=== PATIENT | female | born 1975 | race Caucasian/White ===

== ENCOUNTER → 2018-03-22 | Outpatient (CLI) | payer BC ==
--- NOTE | 2018-03-22 22:24 | CT ---
EXAMINATION TYPE: CT abdomen pelvis w con DATE OF EXAM: 03/22/2018 HISTORY: Epigastric and pelvic pain per patient. Ovarian cyst per order. CT DLP: 1212mGycm Automated Exposure Control for Dose Reduction was Utilized. CONTRAST: CT scan of the abdomen and pelvis is performed with oral and with IV Contrast, patient injected with 100 mL of Isovue M300. COMPARISON: None FINDINGS: LUNG BASES: No significant abnormality is appreciated. LIVER/GB: No significant abnormality is appreciated. PANCREAS: No significant abnormality is seen. SPLEEN: No significant abnormality is seen. ADRENALS: Slight thickening to both adrenal glands favors benign hyperplasia. KIDNEYS: Symmetric cortical medullary uptake and excretion of both kidneys without hydronephrosis tamanna ntified bilaterally. BOWEL: The oral contrast reaches level of the sigmoid colon. There is no suspicious small or large hallie wel dilatation. There is poor distention of stomach makes evaluation at this level suboptimal. Normal appearing contrast-filled appendix is seen. There is mild wall thickening in the sigmoid colon likel y product of poor distention, mild colitis is not entirely excluded. UTERUS/ADNEXA: Anteverted uterus is present. Both ovaries are seen and no suspiciously enlarged. Left is slightly larger than right with scattered peripheral follicles but present in both. No free fluid is seen in pelvic cul-de-sac. Occasional pelvic phlebolith is present bilaterally. LYMPH NODES: No greater than 1cm abdominal or pelvic lymph nodes are appreciated. OSSEOUS STRUCTURES: No significant abnormality is seen. OTHER: No significant additional abnormality is seen. IMPRESSION: No significant acute finding is seen to account for patient's clinical symptoms of the ep igastric and pelvic pain. No suspicious ovarian lesions identified on CT.
== END | disposition home or self-care (01) ==
LOC: RADCTMAIN 14:41
PROVIDERS: ATTEND Family Medicine
DX: N83.209 Unspecified ovarian cyst, unspecified side (principal)
CPT/HCPCS: 74177; Q9967

== ENCOUNTER → 2019-07-04 | Outpatient (CLI) | payer BC ==
--- NOTE | 2019-07-04 11:07 | CT ---
EXAMINATION TYPE: CT facial bones w con DATE OF EXAM: 07/04/2019 COMPARISON: None HISTORY: 44 year-old female right brachial lesion, Right brow ptosis CT DLP: 621 mGycm Automated exposure control for dose reduction was used. TECHNIQUE: CT scanning of the facial bones after administration 100 mL Isovue 300 IV contrast. Coron al reconstructions performed. FINDINGS: Leftward nasal septal deviation. Mild mucosal thickening left ethmoid air cells. No air-fluid level o r any other significant mucosal thickening in the paranasal sinuses. Orbits and globes are intact. There is symmetrical appearance to the extraocular muscles within the o rbits without any apparent atrophy or abnormal enlargement. By CT, appearance of the bilateral optic nerve sheath complexes is unremarkable. Superior ophthalmic veins appear normal and there is enhancement within the bilateral cavernous sinus es. Visualized intracranial structures show no gross abnormal. Mastoid air cells and middle ear cavities are clear. IMPRESSION: No discrete orbital or preseptal abnormality identified. Mild mucosal thickening left ethmoid air cells and leftward nasal septal deviation.
== END | disposition home or self-care (01) ==
LOC: RADCTMAIN 09:12
PROVIDERS: ATTEND Otolaryngology
DX: J34.2 Deviated nasal septum (principal); H57.811 Brow ptosis, right
CPT/HCPCS: 70487; Q9967

== ENCOUNTER → 2020-08-27 | Outpatient (CLI) | payer BC ==
--- NOTE | 2020-08-27 12:07 | MR ---
EXAMINATION TYPE: MR lumbar spine wo con DATE OF EXAM: 08/27/2020 COMPARISON: NONE HISTORY: Low back pain that travels down left leg. TECHNIQUE: T1 and T2 axial and sagittal images of the lumbar spine are submitted. FINDINGS: There is no abnormal signal seen within the visualized spinal cord or paraspinal soft tissu es. At L1-2 there is no evidence of disc herniation or canal stenosis. No foraminal encroachment. At L2-3 there is no disc herniation or canal stenosis. No foraminal encroachment. At L3-4 there is no disc herniation or canal stenosis. No foraminal encroachment. Mild hypertrophic c hange of the facets. At L4-5 there is disc desiccation and evidence of facet hypertrophic changes. Neural foramina patent. No focal herniation or canal stenosis. At L5-S1 there is disc desiccation and degenerative changes with facet arthropathy and mild bilateral foraminal encroachment. Broad-based central disc protrusion with mild effacement of the thecal sac. No definite nerve root contact. IMPRESSION: 1. Degenerative disc disease L5-S1 with broad-based disc protrusion and mild effacement of thecal sac . Mild bilateral foraminal encroachment.
== END ==
LOC: RADMRIMAIN 11:07
PROVIDERS: ATTEND Family Medicine
DX: M51.37 Other intervertebral disc degeneration, lumbosacral region (principal); M51.27 Other intervertebral disc displacement, lumbosacral region
CPT/HCPCS: 72148

== ENCOUNTER → 2022-10-03 | Outpatient (CLI) | payer BC ==
--- NOTE | 2022-10-04 09:48 | MM ---
Reason for Exam: Screening (asymptomatic). Last mammogram was performed 8 year(s) and 2 month(s) ago. Patient History: Menarche at age 10. First Full-Term at age 19. Perimenopausal. Risk Values: Fang 5 year model risk: 0.8%. NCI Lifetime model risk: 8.2%. Prior Study Comparison: 07/28/2014 Bilateral Screening Mammogram, [facility]. Tissue Density: There are scattered fibroglandular densities. Findings: Analyzed By CAD. Pattern appears stable. A few benign-appearing calcifications are scattered within the breasts. No significant interval changes are evident. No suspicious groups of microcalcifications, spiculated or lobular masses, architectural distortion or other secondary signs of malignancy are mammographically apparent. Overall Assessment: Benign, BI-RAD 2 Management: Screening Mammogram of both breasts in 1 year. A negative mammogram report should not preclude additional follow up of suspicious palpable abnormalities. Patient should continue monthly self breast exam. A clinical breast exam by your physician is recommended on an annual basis and results should be correlated with mammographic findings. Electronically signed and approved by: Wellington Braden D.O. Radiologis
== END | disposition home or self-care (01) ==
LOC: RADMAMWWP 07:19
PROVIDERS: ATTEND Family Medicine
DX: Z12.31 Encounter for screening mammogram for malignant neoplasm of breast (principal)
CPT/HCPCS: 77067

== ENCOUNTER → 2022-12-21 | Outpatient (CLI) | payer BC ==
[2022-12-21 09:39] VITALS: BP 110/74; PULSE 99; RESP 18
--- NOTE | 2022-12-21 14:30 | P.PAINPG ---
PQRS Measure Charge Sheet Comment: HISTORY OF PRESENT ILLNESS: 47 yr old female w son at side as a referral from Jayla Garcia NPC presents today w severe and chronic LBP secondary to DDD, spondylosis and facet arthropathy without myelopathy for evaluation. Pt states pain level is provoked at 8 /10 in intensity, constant, localized in the lower lumbar spine where it meets the tailbone, sharp in character w shooting pain towards the L hip, buttocks and LE. Pain is provoked by standing/ sitting/ walking for periods of 15 min ormore. Pain is alleviated by medications (Tyl Arthritis, Ibu), heat, ice, massage therapy x 6 wks approx 2 mo ago, chiropractic treatments weekly x 4 wks in Jul 2022, sitting, reclining and rest. Oswestry pain score of 33. PMH: OA, MDD, RHS, IBS, HH, GERD PSH: Uterine Ablation SH: 27 pack/ yr tobacco use, Rare ETOH use, No illicit drug use. w children and lives w spouse. FH: MGM- Asthma. Mo- Endocarditis/ . Aunt- COPD. Aunt- RA. All: See list Meds: See list REVIEW OF ORGAN SYSTEMS: CONSTITUTIONAL: No fevers or chills. No recent weight loss. NEUROLOGICAL: + numbness and tingling along the distal extremities. No seizure disorders or headaches. MUSCULOSKELETAL: + pain PSYCHIATRIC: Denies current depression or suicidal thoughts. Physical Examinations : Constitutional : Cooperative , not in acute distress . Neurologic : Cranial nerve II to XII intact. No focal neurological deficits. Psychiatric : alert & oriented x 3. Matching mood & appropriate affect. Judgment & insight intact. Musculoskeletal : Cervical Spine Motor strength in the deltoid and biceps: Normal right side. Normal Left side Motor strength biceps and the wrist extensors: Normal right side . Normal left side Motor strength in the triceps muscle: Normal right side. Normal left side Deep tendon reflexes: Normal at the biceps. Normal at Brachioradialis. Normal at triceps Vertebral body tenderness to deep palpation over Cervical facet loading test: positive bilaterally Spurling test: positive bilaterally Neck distraction test: positive bilaterally Joseph sign: positive bilaterally Lumbar spine Motor strength lower extremities ,thigh and legs 5/5 Right side , 5/5 Left side Deep tendon reflexes : Normal Knee Jerk. Normal Ankle Jerk Vertebral body tenderness over L5 Jack Test positive Lumbar facet Loading Test: positive Right / positive Left Range of motion of the lumbar spine Flexion 30 degrees, extension 10 degrees Straight Leg Raise test: Left/ Right positive at 35 degree Tapan test: positive right / positive left. Severe tenderness over the Sacroiliac joint on the Right / Left sides Gaenslen test: positive bilaterally Seated flexion test: positive bilaterally. Sacral spine : Severe tenderness over the Sacroiliac joint: right side / left side Range of motion: Flexion of the lumbar spine <60 degrees Range of motion: Extension of the lumbar spine <20 degrees Gaenslen's Test positive Nader's Test positive Tapan test: positive right side / left side Thigh Thrust Test Sacral Thrust Test Imaging: MRI noncontrast of the lumbar spine from 08/27/20 reviewed Assessment/ Plan : Lumbar DDD Recommendation of IGLESIA L5-S1. May need a series of injections for optimal pain relief. Risks, benefits of procedure discussed and patient verbalized understanding. Admits to aspirin or anti- coagulant use or medical history of diabetes. Protocol for discontinuation/ continuation of medications lalo procedure discussed. Minimal anesthesia provided, if clinically indicated, consisting of Versed and Fentanyl. All questions answered. I have spent greater than 30 minutes on patient care today. Dr Wisdom was available by phone for the evaluation of this patient. The time was used to review the medical records including relevant urine studies and Prescription history (MAPs), review of the available imaging, evaluation and examination of the patient, coordination of care with the medical staff and if applicable referring physicians, as well as creation of the medical record Controlled Substance Measures - Controlled Substance Measures Is patient prescribed a controlled substance at discharge?: No
== END ==
LOC: PNWHC3 08:31
PROVIDERS: ATTEND Specialist
DX: M51.36 Other intervertebral disc degeneration, lumbar region (principal); M47.816 Spondylosis without myelopathy or radiculopathy, lumbar region; M19.90 Unspecified osteoarthritis, unspecified site; F32.9 Major depressive disorder, single episode, unspecified; I10 Essential (primary) hypertension; K21.9 Gastro-esophageal reflux disease without esophagitis; Z87.891 Personal history of nicotine dependence; Z91.040 Latex allergy status; Z91.048 Other nonmedicinal substance allergy status
CPT/HCPCS: 99211

== ENCOUNTER 2023-01-10 09:19 | Day surgery (SDC) | payer BC ==
[2023-01-05 15:43] VITALS: BMI 35.2
[~2023-01-10 09:19] MED LIST: LACTATED RINGERS 1,000 ML IV SCH
[2023-01-10 09:51] VITALS: TEMP 97
[2023-01-10] MEDS ORDERED: methylPREDNISolone ACETATE 80 MG/ML 1 ML VIAL ONE (10:03)
[2023-01-10] MEDS ORDERED: IOPAMIDOL M200 10 ML VIAL ONE (10:03)
--- NOTE | 2023-01-10 10:09 | P.PCN ---
Date of Procedure: 01/10/23 Procedure(s) Performed: PREOPERATIVE DIAGNOSIS: 1- Lumbar Degenerative Disc Diseases 2-Lumbar spondylosis with Facet arthropathy without myelopathy. POSTOPERATIVE DIAGNOSIS: 1-lumbar degenerative disc disease. 2-lumbar spondylosis with facet arthropathy without myelopathy. PROCEDURE 1. Lumbar epidural steroid injection under fluoroscopic guidance at the L5-S1 level. (Fluoroscopy imaging was available in radiology department) 2. Lumbar epidurogram. ANESTHESIA: Lidocaine 1% 3 and then only. EBL: Minimal PROCEDURE INDICATION: The patient with low back pain and radiculitis symptoms unresponsive to conservative treatment. Fluoroscopy was used to optimize visualization of the needle placement and to maximize safety. PROCEDURE DESCRIPTION / TECHNIQUE: The patient was seen and identified in the preoperative area. Risks, benefits, complications including but not limited to infections ,bleeding ,allergic reaction to the medications ,nerve damage and not complete pain releife , and alternatives were discussed with the patient. The patient agreed to proceed with the procedure and signed the consent, and vital signs were stable. Patient was taken to the OR and time out was completed. The patient was placed in the prone position on procedure table and a pillow was placed under the abdomen to reduce lumbar lordosis. The lumbosacral area was prepped and draped in the usual sterile fashion.ere closely monitored during the procedure. Vital signs was monitered during the entire procedure. Using anterior-posterior fluoroscopy, the L5-S1 interlaminar space was identified and the skin over this site was marked and then infiltrated with 1% lidocaine subcutaneously. Subsequently, a 20-gauge Tuohy epidural needle was inserted and advanced toward the epidural space using the ``Loss of resistance technique and guided by AP and lateral fluoroscopy. The correct needle position in the epidural space was verified with the injection of 2 mL of the water soluble contrast dye Isovue 200 contrast and observing an excellent epidurogram with the epidural spread of the dye, after negative aspiration for blood and CSF and in the absence of paresthesias. Again after negative aspiration, a 6 ml mixture containing 80 mg of Depo-medrol ( Preservetive Free ), and 2 ml of preservative free Normal Saline, and 2 ml of preservative free lidocaine 1% solution was injected and a washout of epidurogram was seen. Needle was withdrawn intact, skin was cleansed, and bandages were applied. COMPLICATIONS: None DISPOSITION / PLANS: The patient was placed in a supine position and transferred to the recovery area in a stable condition for observation. There was no e vidence of lower extremity motor or sensory deficit after the procedure. Patient was discharged from the recovery room after meeting discharge criteria. Home discharge instructions were given to the patient by the staff. The patient was reexamined prior to discharge. The patient will schedule a follow up in the clinic in 2-4 weeks.
[2023-01-10 10:16] VITALS: BP 119/76; PULSE 91; RESP 18
--- NOTE | 2023-01-10 10:22 | FL ---
Fluoroscopy History: PAIN Lumbar Epid Inj 1sec fluoro time 0.85510 DAP
== END 2023-01-10 10:25 | disposition home or self-care (01) ==
LOC: ORPAIN 09:19
PROVIDERS: ATTEND Specialist
DX: M51.16 Intervertebral disc disorders with radiculopathy, lumbar region (principal); M47.26 Other spondylosis with radiculopathy, lumbar region; Z91.040 Latex allergy status
CPT/HCPCS: 81025; 62323; J1040; Q9966

== ENCOUNTER → 2023-02-02 | Outpatient (CLI) | payer BC ==
[2023-02-02 09:29] VITALS: BP 108/76; PULSE 93; RESP 16; TEMP 98.9
--- NOTE | 2023-02-02 12:23 | P.PAINPG ---
PQRS Measure Charge Sheet Comment: HISTORY OF PRESENT ILLNESS: 47 yr old female w son at side presents today w severe and chronic LBP secondary to DDD, spondylosis and facet arthropathy without myelopathy for evaluation s/p IGLESIA L5-S1. Pt states she experienced 50 % pain relief x 3 wks s/p procedure. Pt states pain level is provoked at 10 /10 in intensity, constant, localized in the lower lumbar spine where it meets the tailbone, achy in character w shooting pain towards the L hip and up the spine. Pain is provoked by standing/ sitting/ walking for periods of 15 min or more. Pain is alleviated by medications, heat, ice, massage therapy x 6 wks approx 2 mo ago, chiropractic treatments weekly x 4 wks in Jul 2022, sitting, reclining and rest. Oswestry pain score of 30. Interventional procedures include IGLESIA L5-S1 x1 Medications include Tyl Arthritis, Ibu REVIEW OF ORGAN SYSTEMS: CONSTITUTIONAL: No fevers or chills. No recent weight loss. NEUROLOGICAL: + numbness and tingling along the distal extremities. No seizure disorders or headaches. MUSCULOSKELETAL: + pain PSYCHIATRIC: Denies current depression or suicidal thoughts. Physical Examinations : Constitutional : Cooperative , not in acute distress . Neurologic : Cranial nerve II to XII intact. No focal n eurological deficits. Psychiatric : alert & oriented x 3. Matching mood & appropriate affect. Judgment & insight intact. Musculoskeletal : Cervical Spine Motor strength in the deltoid and biceps: Normal right side. Normal Left side Motor strength biceps and the wrist extensors: Normal right side . Normal left side Motor strength in the triceps muscle: Normal right side. Normal left side Deep tendon reflexes: Normal at the biceps. Normal at Brachioradialis. Normal at triceps Vertebral body tenderness to deep p alpation over Cervical facet loading test: positive bilaterally Spurling test: positive bilaterally Neck distraction test: positive bilaterally Joseph sign: positive bilaterally Lumbar spine Motor strength lower extremities ,thigh and legs 5/5 Right side , 5/5 Left side Deep tendon reflexes : Normal Knee Jerk. Normal Ankle Jerk Vertebral body tenderness Jack Test positive Lumbar facet Loading Test: positive Right / positive Left over L4-L5, L5-S1 Range of motion of the lumbar spine Flexion 30 degrees, extension 10 degrees Straight Leg Raise test: Left/ Right positive at 35 degree Tapan test: positive right / positive left. Severe tenderness over the Sacroiliac joint on the Right / Left sides Gaenslen test: positive bilaterally Seated flexion test: positive bilaterally. Sacral spine : Severe tenderness over the Sacroiliac joint: right side / left side Range of motion: Flexion of the lumbar spine <60 degrees Range of motion: Extension of the lumbar spine <20 degrees Gaenslen's Test positive Nader's Test positive Tapan test: positive right side / left side Thigh Thrust Test Sacral Thrust Test Imaging: MRI noncontrast of the lumbar spine from 08/27/20 reviewed Assessment/ Plan : Lumbar DDD Recommendation of BL facet block of the medial branches L4-L5, L5-S1 #1. May need a series of injections, up until RFA, for optimal pain relief. Risks, benefits of procedure discussed and patient verbalized understanding. Admits to aspirin or anti- coagulant use or medical history of diabetes. Protocol for discontinuation/ continuation of medications lalo procedure discussed. Minimal anesthesia provided, if clinically indicated, consisting of Versed and Fentanyl. All questions answered. I have spent greater than 30 minutes on patient care today. Dr Wisdom was available by phone for the evaluation of this patient. The time was used to review the medical records including relevant urine studies and Prescription history (MAPs), review of the available imaging, evaluation and examination of the patient, coordination of care with the medical staff and if applicable referring physicians, as well as creation of the medical record PQRS Narrative: Hx Alcohol Use (MH) No Home Medications: Ambulatory Orders DULoxetine HCL [Cymbalta] 60 mg PO HS 01/05/23 Ibuprofen [Motrin] 600 mg PO Q8HR PRN 01/05/23 Levothyroxine Sodium [Synthroid] 88 mcg PO DAILY 01/05/23 Controlled Substance Measures - Controlled Substance Measures Is patient prescribed a controlled substance at discharge?: No
== END ==
LOC: PNWHC3 08:37
PROVIDERS: ATTEND Specialist
DX: M51.37 Other intervertebral disc degeneration, lumbosacral region (principal); Z91.048 Other nonmedicinal substance allergy status; Z91.040 Latex allergy status
CPT/HCPCS: 99211

== ENCOUNTER 2023-02-21 08:36 | Day surgery (SDC) | payer BC ==
[2023-02-21 09:36] VITALS: TEMP 97
[2023-02-21] MEDS ORDERED: MIDAZOLAM 2 MG/2 ML VIAL ONE (10:00)
[2023-02-21] MEDS ORDERED: TRIAMCINOLONE ACETONIDE 40 MG/ML 1 ML VIAL ONE (10:00)
[2023-02-21] MEDS ORDERED: ROPIVACAINE 5MG/ML 20ML VIAL ONE (10:00)
--- NOTE | 2023-02-21 10:14 | P.PCN ---
Date of Procedure: 02/21/23 Surgeon: Mary Anne Richardson Pathology: none sent Condition: stable Disposition: PACU Description of Procedure: PREOPERATIVE DIAGNOSIS : 1- Lumbar spondylosis with Facet Arthropathy without myelopathy . 2- Lumber degenerative disc disease POSTOPERATIVE DIAGNOSIS: 1- Lumbar spondylosis with Facet Arthropathy without myelopathy . 2- Lumber degenerative disc disease PROCEDURE: Diagnostic bilateral L4 -5 , and L5-S1 medial branch block under fluoroscopy Physician: Mary Anne Richardson MD ANESTHESIA: Local with 1% lidocaine; IV moderate conscious sedation with Versed 2 mg . EBL: Negligible COMPLICATION: None. PROCEDURE INDICATION: Chronic low back pain secondary to Facet arthropathy unresponsive to conservative treatment. PROCEDURE DESCRIPTION: the patient was seen and identified in the preop holding area , risks and benefits and possible complications of the procedure and alternatives were discussed with the patient, and the patient agreed to proceed with the procedure and signed the consent. IV was started and vital signs monitored during the procedure and fluoroscopy was used to maximize the benefit and accuracy of the needle placement, sedation was given to decrease patient anxiety, patient was taken to the procedure room and placed in prone position vital signs monitored. The patient was brought into the procedure room and placed in prone position. Skin was prepped with Chloraprep and draped in a sterile manner. Lidocaine 1% was used to numb the skin up at the target points that were chosen as follows: at the L5-S1 level which corresponds to the dorsal ramus of L5 the target points were at the superior medial aspect of the sacral ala on each side of the spine on the AP view of fluoroscopy, and for the L3 and L4 medial branches the target points were the connection between the transverse process and the superior articular process of L4 and L5 respectively on the oblique views of fluoroscopy. I used 22-gauge 3-1/2 inch Quincke spinal needles for this procedure and after contacting bone at the target points mentioned above I injected 1 mL of a mixture of Kenalog 40 mg +5 MLS of Ropivacaine 0.5% PF . Patient tolerated procedure well. At the end of the procedure the needles removed and a bandage applied after the skin was cleaned the cleaning solution. patient was then taken to the recovery room in stable condition and monitored in the recovery room for 20-30 minutes and discharged home in stable condition after discharge criteria met . A copy of the needle placement picture was saved to the C-arm machine. Sedation time: 10:00-10:13
[2023-02-21] MEDS ORDERED: IV FLUID CONTINUATION 1,000 ML IV ONE (10:26)
[2023-02-21 10:54] VITALS: BP 119/60; PULSE 78; RESP 17
--- NOTE | 2023-02-21 12:55 | FL ---
Intraoperative/procedural fluoroscopic services were provided. Total fluoroscopy time is 2.0 seconds with a total of 4 submitted images to PACS. Please see the operative/procedural note for further deta ils. DAP: 0.04259 mGym2
== END 2023-02-21 10:55 | disposition home or self-care (01) ==
LOC: ORPAIN 08:36
PROVIDERS: ATTEND Anesthesiology
DX: M47.816 Spondylosis without myelopathy or radiculopathy, lumbar region (principal); M51.36 Other intervertebral disc degeneration, lumbar region; G89.29 Other chronic pain; E07.9 Disorder of thyroid, unspecified
CPT/HCPCS: 81025; 64493; 64494 ×2; 99152; J2250; J3301; J2795

== ENCOUNTER → 2023-06-02 | Outpatient (CLI) | payer BC ==
--- NOTE | 2023-06-04 21:10 | MR ---
EXAMINATION TYPE: MR brain wo/w con DATE OF EXAM: 06/02/2023 COMPARISON: 09/29/2015 HISTORY: 48-year-old female R68.89 OTHR SX G43.909 MIGRAINE Z87.828 HX TRAUMA, Migraines, trauma TECHNIQUE: Multiplanar, multisequence images of the brain and brainstem were acquired before and aft er administration of 9 mL IV Gadavist. Diffusion weighted imaging is performed. FINDINGS: No evidence for acute infarction, hemorrhage, mass, mass effect, midline shift, herniation, effacemen t of basal cisterns, or extra-axial fluid collection. The ventricles and sulci are age-appropriate. Major intracranial flow voids are intact. T2/FLAIR weighted sequences show mild scattered punctate bright signal foci in the subcortical region of both cerebral hemispheres, particularly in the bifrontal lobes, approximately 5-10 on each side Midline structures demonstrate normal morphology. The craniocervical junction is normal. Post contrast images demonstrate no evidence of pathologic enhancement. Dural venous sinuses are pat ent. There is mild mucosal thickening in the ethmoid air cells. Globes are intact. Slight leftward nasal s eptal deviation. There is moderate adenoid soft tissue hypertrophy. IMPRESSION: 1. Similar mild scattered punctate bright white matter change particularly in the subcortical region of the bifrontal lobes. Findings may reflect sequela of chronic migraines versus changes of chronic s mall vessel ischemic disease. 2. No acute intracranial abnormality or abnormal enhancing lesion seen.
== END | disposition home or self-care (01) ==
LOC: RADMRIMAIN 13:28
PROVIDERS: ATTEND Family Medicine
DX: G93.89 Other specified disorders of brain (principal); G43.909 Migraine, unspecified, not intractable, without status migrainosus; R68.89 Other general symptoms and signs; Z87.828 Personal history of other (healed) physical injury and trauma
CPT/HCPCS: 70553; A9585

== ENCOUNTER → 2024-09-30 | Outpatient (CLI) | payer BC ==
--- NOTE | 2024-09-30 12:12 | CTL ---
EXAMINATION TYPE: CT Low Dose Lung DATE OF EXAM: 09/30/2024 9:04 AM COMPARISON: None. CLINICAL INDICATION: Female, 49 years old with history of Z12.2 ENCNTR SCREEN FOR MA F17.210 NICOTIN E DEPEN, PT SMOKES 1 PK/DAY X 30 YEARS, History of tobacco use. TECHNIQUE: Low dose computed tomography scan was performed through the chest at 1 mm thick sections a nd reconstructed images in multiple planes at 1 mm and [address] DLP: 69 mGycm, CT CTDI: 2.1 mGy, Automated exposure control for dose reduction was used. CT DIAGNOSTIC QUALITY: Satisfactory FINDINGS: The heart is normal size without pericardial effusion. Aorta normal caliber with conventional arch vessel branching anatomy. Mild atherosclerotic narrowing at the origin of the left subclavian artery. A couple or alignment sized AP window lymph nodes measuring up to 1.1 cm likely reactive/post inflamm atory. Otherwise, no thoracic lymphadenopathy by CT size criteria. Mild diffuse bronchial wall thickening. Some patchy groundglass densities in the upper lungs. Minimal emphysematous change. No consolidation or pleural effusion. 4 mm lateral right upper lobe pulmonary nodule, axial image 54. Adjacent 3 mm anterior right upper lobe pulmonary nodule, axial 55. No suspicious greater than 4 mm pulmonary nodule is seen. Visualized upper abdomen shows some low-density thickening of the left adrenal gland without discrete nodularity. Bones: Mild degenerative disc disease midthoracic spine. IMPRESSION: 1. Lung RADS 2, benign. A couple pulmonary nodules measuring up to 4 mm on baseline screening. 2. COPD with mild emphysema. Recommend smoking cessation. 3. Superimposed patchy groundglass in the upper lungs. Findings may be seen with RB-ILD, DIP, and VISUAL EDUCATION DIRECTOR . Correlate to exclude hypersensitivity pneumonitis or atypical pneumonias. CT LUNG RAD AND CT CHEST RECOMMENDATION: Lung-Rad 2 Benign Appearance or Behavior: Continue annual sc reening with LDCT in 12 months. S Modifier (other clinically significant findings): None [facility], , 09/30/2024 12:10 PM
== END | disposition home or self-care (01) ==
LOC: RADCTMAIN 08:40
PROVIDERS: ATTEND Family Medicine
DX: Z12.2 Encounter for screening for malignant neoplasm of respiratory organs (principal); F17.210 Nicotine dependence, cigarettes, uncomplicated; J44.9 Chronic obstructive pulmonary disease, unspecified; J43.9 Emphysema, unspecified; R91.8 Other nonspecific abnormal finding of lung field
CPT/HCPCS: 71271

== ENCOUNTER → 2024-11-04 | Outpatient (CLI) | payer BC ==
--- NOTE | 2024-11-04 14:24 | MM ---
Reason for Exam: Screening (asymptomatic). Last mammogram was performed 2 year(s) and 1 month(s) ago. Patient History: Menarche at age 10. First Full-Term at age 19. Postmenopausal. Risk Values: Fang 5 year model risk: 0.9%. NCI Lifetime model risk: 7.9%. Prior Study Comparison: 07/28/2014 Bilateral Screening Mammogram, [facility]. 10/03/2022 Bilateral MG screening mammo w CAD, [facility]. Tissue Density: There are scattered areas of fibroglandular density. Findings: Analyzed By CAD. Right breast: There is no suspicious group of microcalcifications or new suspicious mass. Left breast: There is no suspicious group of microcalcifications or new suspicious mass. Overall Assessment: Negative, BI-RAD 1 Management: Screening Mammogram of both breasts in [address] [facility] will attempt to contact patient to return for supplemental views and ultrasound if indicated. Patient should continue monthly self-breast exams. A clinical breast exam by your physician is recommended on an annual basis. This exam should not preclude additional follow-up of suspicious palpable abnormalities. Note on Fang scores and lifetime risk: 1. A Fang score greater than 3% is considered moderate risk. If this is the case, consider specialist referral to assess eligibility for a risk reducing agent. 2. If overall lifetime risk for the development of breast cancer is 20% or higher, the patient may qualify for future screening with alternating mammogram and breast MRI. [facility], , 11/04/2024 2:21 PM. Electronically signed and approved by: Angel Luis Beltrán DO
--- NOTE | 2024-11-04 20:20 | BD ---
EXAMINATION TYPE: Axial Bone Density DATE OF EXAM: 11/04/2024 CLINICAL HISTORY: 49 years old Female. ICD-10 CODE: N95.1 POST MENOPAUSAL , Additional History: Height: 64 Weight: 197.8 FRAX RISK QUESTIONS: Alcohol (3 or more units per day): no Family History (Parent hip fracture): no Glucocorticoids (More than 3mos): no (Ex: prednisone, prednisolone, methylprednisolone, dexamethasone, and hydrocortisone). History of Fracture in Adulthood: no Secondary Osteoporosis: 1. Type 1 Diabetes: no 2. Hyperthyroidism: no 3. Menopause before 45: no 4. Malnutrition: no 5. Chronic liver disease: no Rheumatoid Arthritis: no Current Tobacco Use: yes RISK FACTORS HISTORY OF: Hip Fracture (Right/Left): no Spine Fracture: no History of Wrist Fracture: no Surgery to Spine/Hip(right/left)/Wrist (right/left): no MEDICATIONS: Thyroid Medications: yes Which medication: Levothyroxine How Long: past year Osteoporosis Medications: no EXAM MEASUREMENTS: Bone mineral densitometry was performed using the [facility]. Bone mineral density as measured about the Lumbar spine is: ----- L1-L4(G/cm2): 1.210 T Score Values are as follows: ----- L1: -0.4 ----- L2: 0.0 ----- L3: 0.7 ----- L4: 0.5 ----- L1-L4: 0.3 Z Score Values are as follows: ----- L1: -0.8 ----- L2: -0.3 ----- L3: 0.4 ----- L4: 0.2 ----- L1-L4: -0.1 BASELINE STUDY Bone mineral density about the R hip (g/cm2): 1.262 Bone mineral density about the L hip (g/cm2): 1.287 T Score values are as follows: -----R Neck: 1.3 -----L Neck: 1.2 -----R Total: 2.0 -----L Total: 2.2 Z Score values are as follows: -----R Neck: 1.6 -----L Neck: 1.5 -----R Total: 1.9 -----L Total: 2.1 Baseline Study FRAX%s: The graph provided illustrates a 3.2% chance for a major osteoporotic fx and a 0.0% chance fo r the hips probability for fx in 10 years time. IMPRESSION: Normal (Values between +1 and -1 indicate normal bone mass). Consider repeating this study in 5 year s or sooner if there is some new clinical indication. NOTE: T-SCORE=SD OF THE YOUNG ADULT MEAN. [facility], , 11/04/2024 8:17 PM
== END | disposition home or self-care (01) ==
LOC: RADMAMWWP 13:41
PROVIDERS: ATTEND Family Medicine
DX: Z12.31 Encounter for screening mammogram for malignant neoplasm of breast (principal); R92.323 Mammographic fibroglandular density, bilateral breasts; Z78.0 Asymptomatic menopausal state
CPT/HCPCS: 77063; 77067; 77080